=== PATIENT | male | born 1985 | race Asian ===

== ENCOUNTER 2020-10-01 17:45 | Emergency (ER) | payer MEDICAID ==
[~2020-10-01] VITALS: Ht 165.1 cm; Wt 56.8 kg
[~2020-10-01 17:45] MED LIST: NOCURR
[2020-10-01] MEDS ORDERED: PENICILLIN G BENZATHINE LA 1,200,000 UNITS/2 ML SYRINGE IM ONE (18:15)
[2020-10-01] MEDS ORDERED: DEXAMETHASONE 4 MG TABLET PO ONE (18:15)
[2020-10-01 19:13] VITALS: BP 132/87
== END 2020-10-01 20:00 | disposition home or self-care (01) ==
LOC: EMS 17:47
DX: J02.9 Acute pharyngitis, unspecified (principal); F17.210 Nicotine dependence, cigarettes, uncomplicated
CPT/HCPCS: 87430; 96372; 99283; J0561; J8540

== ENCOUNTER 2022-06-17 14:47 | Emergency (ER) | payer MEDICAID ==
[~2022-06-17] VITALS: Ht 170.2 cm; Wt 59.1 kg
[2022-06-17 14:59] LABS: COVID AG,FIA SOURCE NASAL SWAB
[2022-06-17 15:42] LABS: INFLUENZA TYPE A NEGATIVE FOR TYPE A (NEGATIVE); INFLUENZA TYPE B NEGATIVE FOR TYPE B (NEGATIVE)
[2022-06-17 15:50] VITALS: BP 134/73
[2022-06-17] MEDS ORDERED: IBUP-1492 PO (16:30)
[2022-06-17] MEDS ORDERED: BENZ-227 PO (16:30)
== END 2022-06-17 16:48 | disposition home or self-care (01) ==
LOC: EMS 14:49
DX: J06.9 Acute upper respiratory infection, unspecified (principal); F17.210 Nicotine dependence, cigarettes, uncomplicated; Z98.890 Other specified postprocedural states; Z20.822 Contact with and (suspected) exposure to COVID-19
CPT/HCPCS: 71045; 87804; 99284